=== PATIENT | female | born 1980 | race Hispanic/Latino ===

== ENCOUNTER 2019-01-30 14:23 | Outpatient (CLI) | payer OTHER, SELFPAY | END 2019-01-30 14:24 | disposition home or self-care (01) | LOC: ULT 14:23 | PROVIDERS: ATTEND Internal Medicine Hematology & Oncology | DX: Z51.11 Encounter for antineoplastic chemotherapy (principal); C50.211 Malignant neoplasm of upper-inner quadrant of right female breast; I08.1 Rheumatic disorders of both mitral and tricuspid valves; Z79.899 Other long term (current) drug therapy | CPT/HCPCS: 93306 ==

== ENCOUNTER 2019-02-09 08:37 | Day surgery (SDC) | payer OTHER ==
[~2019-02-09 08:37] MED LIST: CYCLOPHOSPHAMIDE IVPB SCH; Cyclophosphamide 1 GM in Sodium Chloride 0.9% 250 ML 250 ML IVPB SCH; DOXORUBICIN IVPB SCH; Dexamethasone 10 MG in Sodium Chloride 0.9% 50 ML IVPB SCH; Palonosetron HCl 0.25 MG in Sodium Chloride 0.9% 50 ML IVPB SCH; Pegfilgrastim Onpro 6 MG/0.6 ML SQ SCH; SODIUM CHLORIDE 0.9% IVPB SCH
[2019-02-09] MEDS ORDERED: PEGFILGRASTIM-JMDB 6 MG/0.6 ML SYRINGE SQ SCH (08:45)
[2019-02-09] MEDS ORDERED: Sodium Chloride 0.9% 20 ML ONE (08:46)
[2019-02-09] MEDS ORDERED: SODIUM CHLORIDE 0.9% IVPB SCH (09:15)
[2019-02-09] MEDS ORDERED: DOXORUBICIN IVPB SCH (09:15)
[2019-02-09 11:38] VITALS: BP 118/72; TEMP 98
== END 2019-02-09 12:50 | disposition home or self-care (01) ==
LOC: ONC/OP 08:37
PROVIDERS: ATTEND Internal Medicine Hematology & Oncology
DX: Z51.11 Encounter for antineoplastic chemotherapy (principal); C50.211 Malignant neoplasm of upper-inner quadrant of right female breast; Z17.0 Estrogen receptor positive status [ER+]
CPT/HCPCS: 96375; 96377; 96413; 96417; J1100; J1642; J2469; J2505; J3490; J7050; J9000; J9070

== ENCOUNTER 2019-02-10 13:07 | Day surgery (SDC) | payer OTHER ==
[~2019-02-10 13:07] MED LIST changes: -CYCLOPHOSPHAMIDE IVPB SCH; -Cyclophosphamide 1 GM in Sodium Chloride 0.9% 250 ML 250 ML IVPB SCH; -DOXORUBICIN IVPB SCH; -Dexamethasone 10 MG in Sodium Chloride 0.9% 50 ML IVPB SCH; +PEGFILGRASTIM-JMDB 6 MG/0.6 ML SYRINGE SQ SCH; -Palonosetron HCl 0.25 MG in Sodium Chloride 0.9% 50 ML IVPB SCH; -Pegfilgrastim Onpro 6 MG/0.6 ML SQ SCH; -SODIUM CHLORIDE 0.9% IVPB SCH
[2019-02-10] MEDS ORDERED: PEGFILGRASTIM-JMDB 6 MG/0.6 ML SYRINGE ONE (13:08)
== END 2019-02-10 13:16 | disposition home or self-care (01) ==
LOC: ONC/OP 13:07
PROVIDERS: ATTEND Internal Medicine Hematology & Oncology
DX: C50.211 Malignant neoplasm of upper-inner quadrant of right female breast (principal)
CPT/HCPCS: 96372; Q5108

== ENCOUNTER 2019-02-23 10:04 | Day surgery (SDC) | payer OTHER ==
[~2019-02-23 10:04] MED LIST changes: +Cyclophosphamide 1 GM in Sodium Chloride 0.9% 250 ML 250 ML IVPB SCH; +DOXORUBICIN IVPB SCH; -PEGFILGRASTIM-JMDB 6 MG/0.6 ML SYRINGE SQ SCH; +Palonosetron HCl 0.25 MG in Sodium Chloride 0.9% 50 ML IVPB SCH; +SODIUM CHLORIDE 0.9% IVPB SCH
[2019-02-23] MEDS ORDERED: Sodium Chloride 0.9% 20 ML ONE (10:09)
[2019-02-23 10:22] VITALS: BP 107/58; TEMP 98.6
[2019-02-23] MEDS ORDERED: DOXORUBICIN IVPB SCH (10:30)
[2019-02-23] MEDS ORDERED: SODIUM CHLORIDE 0.9% IVPB SCH (10:30)
== END 2019-02-23 12:54 | disposition home or self-care (01) ==
LOC: ONC/OP 10:04
PROVIDERS: ATTEND Internal Medicine Hematology & Oncology
DX: Z51.11 Encounter for antineoplastic chemotherapy (principal); C50.211 Malignant neoplasm of upper-inner quadrant of right female breast; Z17.0 Estrogen receptor positive status [ER+]
CPT/HCPCS: 96375; 96413; 96417; J1100; J1642; J2469; J3490; J7050; J9000; J9070

== ENCOUNTER 2019-03-13 11:09 | Day surgery (SDC) | payer OTHER ==
[2019-03-13] MEDS ORDERED: Sodium Chloride 0.9% 20 ML ONE (11:17)
[2019-03-13 11:37] VITALS: BP 102/66; TEMP 98.7
== END 2019-03-13 15:16 | disposition home or self-care (01) ==
LOC: ONC/OP 11:09
PROVIDERS: ATTEND Internal Medicine Hematology & Oncology
DX: Z51.11 Encounter for antineoplastic chemotherapy (principal); C50.211 Malignant neoplasm of upper-inner quadrant of right female breast
CPT/HCPCS: 96375; 96413; 96417; J1100; J1642; J2469; J3490; J7050; J9000; J9070

== ENCOUNTER 2019-03-14 12:05 | Day surgery (SDC) | payer OTHER ==
[~2019-03-14 12:05] MED LIST changes: -Cyclophosphamide 1 GM in Sodium Chloride 0.9% 250 ML 250 ML IVPB SCH; -DOXORUBICIN IVPB SCH; +PEGFILGRASTIM-JMDB 6 MG/0.6 ML SYRINGE SQ SCH; -Palonosetron HCl 0.25 MG in Sodium Chloride 0.9% 50 ML IVPB SCH; -SODIUM CHLORIDE 0.9% IVPB SCH
[2019-03-14 12:15] VITALS: BP 121/59; TEMP 97.7
== END 2019-03-14 12:16 | disposition home or self-care (01) ==
LOC: ONC/OP 12:05
PROVIDERS: ATTEND Internal Medicine Hematology & Oncology
DX: C50.211 Malignant neoplasm of upper-inner quadrant of right female breast (principal)
CPT/HCPCS: 96372; Q5108